=== PATIENT | female | born 2000 | race African-American/Black ===

== ENCOUNTER 2020-01-05 11:12 | Emergency (ER) | payer OTHER ==
[~2020-01-05] VITALS: Ht 167.6 cm; Wt 130.0 kg
[2020-01-05 11:50] LABS: BILIRUBIN,URINE NEGATIVE (NEG); CLARITY,URINE CLEAR; COLOR,URINE YELLOW; NITRITE,URINE NEGATIVE (NEG); PH,URINE 5.5 (<5.0-8.0); PROTEIN,URINE NEGATIVE (NEG-TRACE); UROBILINOGEN,URINE 0.2 mg/dL (0.2 mg/dL)
[2020-01-05 11:51] LABS: BASO % 1 % (0-3); EOS # 0.1 x10^3/uL (0.0-0.7); EOS % 1 % (0-3); HEMATOCRIT 35.6 % (36.0-47.0); HEMOGLOBIN 11.3 g/dL (12.0-15.5); LYMPH # 2.4 x10^3/uL (1.0-4.8); LYMPH % 36 % (24-48); MEAN CORPUSCULAR HEMOGLOBIN 23 pg (25-35); MEAN CORPUSCULAR HGB CONC 32 g/dL (31-37); MEAN CORPUSCULAR VOLUME 72 fL (79-100); MONO # 0.5 x10^3/uL (0.0-1.1); MONO % 8 % (0-9); NEUT # 3.7 x10^3/uL (1.8-7.7); NEUT % 55 % (31-73); PLATELET COUNT 270 x10^3/uL (140-400); RED BLOOD COUNT 4.94 x10^6/uL (3.50-5.40); RED CELL DISTRIBUTION WIDTH 16.2 % (11.5-14.5); WHITE BLOOD COUNT 6.8 x10^3/uL (4.0-11.0)
[2020-01-05 11:56] LABS: BACTERIA,URINE FEW /HPF (0-FEW); RBC,URINE OCC /HPF (0-2); SQUAMOUS EPITHELIAL CELL,UR MOD /LPF; WBC,URINE OCC /HPF (0-4)
--- NOTE | 2020-01-05 12:01 | PHYS DOC ---
Past Medical History Past Medical History: No Pertinent History Past Surgical History: No Surgical History Smoking Status: Never Smoker Alcohol Use: Occasionally Drug Use: None General Adult EDM: Chief Complaint: ABDOMINAL PAIN HPI: HPI: Patient is a 19-year-old female who presents to ER today for evaluation of right lower abdominal pain that been going on for 3 days. Patient also complained of frequent urination with pain. Patient denies any vaginal bleeding or discharge. Patient denies any fever. Review of Systems: Review of Systems: Constitutional: Denies fever or chills. [] Eyes: Denies change in visual acuity. [] HENT: Denies nasal congestion or sore throat. [] Respiratory: Denies cough or shortness of breath. [] Cardiovascular: Denies chest pain or edema. [] GI: Positive for abdominal pain, nausea, no diarrhea, : Denies dysuria. [] Musculoskeletal: Denies back pain or joint pain. [] Integument: Denies rash. [] Neurologic: Denies headache, focal weakness or sensory changes. [] Endocrine: Denies polyuria or polydipsia. [] Lymphatic: Denies swollen glands. [] Psychiatric: Denies depression or anxiety. [] Heart Score: Risk Factors: Risk Factors: DM, Current or recent (<one month) smoker, HTN, HLP, family h istory of CAD, obesity. Risk Scores: Score 0 - 3: 2.5% MACE over next 6 weeks - Discharge Home Score 4 - 6: 20.3% MACE over next 6 weeks - Admit for Clinical Observation Score 7 - 10: 72.7% MACE over next 6 weeks - Early Invasive Strategies Allergies: Allergies: Allergies Coded Allergies Type Severity Reaction Last Updated Verified No Known Drug Allergies 08/22/13 No Physical Exam: PE: Constitutional: Well developed, well nourished, no acute distress, non-toxic appearance. [] HENT: Normocephalic, atraumatic, bilateral external ears normal, oropharynx moist, no oral exudates, nose normal. [] Eyes: PERRLA, EOMI, conjunctiva normal, no discharge. [] Neck: Normal range of motion, no tenderness, supple, no stridor. [] Cardiovascular:Heart rate regular rhythm, no murmur [] Lungs & Thorax: Bilateral breath sounds clear to auscultation [] Abdomen: Bowel sounds normal, soft, there is tenderness to palpation to right l ower abdominal area and suprapubic area, no masses, no pulsatile masses. [] Skin: Warm, dry, no erythema, no rash. [] Back: No tenderness, no CVA tenderness. [] Extremities: No tenderness, no cyanosis, no clubbing, ROM intact, no edema. [] Neurologic: Alert and oriented X 3, normal motor function, normal sensory function, no focal deficits noted. [] Psychologic: Affect normal, judgement normal, mood normal. [] Current Patient Data: Labs: Laboratory Tests Test 01/05/20 11:16 01/05/20 11:25 White Blood Count 6.8 x10^3/uL (4.0-11.0) Red Blood Count 4.94 x10^6/uL (3.50-5.40) Hemoglobin 11.3 g/dL (12.0-15.5) L Hematocrit 35.6 % (36.0-47.0) L Mean Corpuscular Volume 72 fL (79-100) L Mean Corpuscular Hemoglobin 23 pg (25-35) L Mean Corpuscular Hemoglobin Concent 32 g/dL (31-37) Red Cell Distribution Width 16.2 % (11.5-14.5) H Platelet Count 270 x10^3/uL (140-400) Neutrophils (%) (Auto) 55 % (31-73) Lymphocytes (%) (Auto) 36 % (24-48) Monocytes (%) (Auto) 8 % (0-9) Eosinophils (%) (Auto) 1 % (0-3) Basophils (%) (Auto) 1 % (0-3) Neutrophils # (Auto) 3.7 x10^3/uL (1.8-7.7) Lymphocytes # (Auto) 2.4 x10^3/uL (1.0-4.8) Monocytes # (Auto) 0.5 x10^3/uL (0.0-1.1) Eosinophils # (Auto) 0.1 x10^3/uL (0.0-0.7) Basophils # (Auto) 0.0 x10^3/uL (0.0-0.2) Platelet Estimate Pending Urine Collection Type Unknown Urine Color Yellow Urine Clarity Clear Urine pH 5.5 (<5.0-8.0) Urine Specific Herman 1.025 (1.000-1.030) Urine Protein Negative mg/dL (NEG-TRACE) Urine Glucose (UA) Negative mg/dL (NEG) Urine Ketones (Stick) Negative mg/dL (NEG) Urine Blood Negative (NEG) Urine Nitrite Negative (NEG) Urine Bilirubin Negative (NEG) Urine Urobilinogen Dipstick 0.2 mg/dL (0.2 mg/dL) Urine Leukocyte Esterase Negative (NEG) Urine RBC Occ /HPF (0-2) Urine WBC Occ /HPF (0-4) Urine Squamous Epithelial Cells Mod /LPF Urine Bacteria Few /HPF (0-FEW) Urine Mucus Marked /LPF POC Urine HCG, Qualitative Hcg negative (Negative) Laboratory Tests 01/05/20 11:16 Vital Signs: Vital Signs Date Time Temp Pulse Resp B/P (MAP) Pulse Ox O2 Delivery O2 Flow Rate FiO2 01/05/20 11:20 98.9 88 16 147/65 (92) 97 Room Air 98.9 EKG: EKG: [] Radiology/Procedures: Radiology/Procedures: [][facility] [address] [place] [address] IMAGING REPORT Signed PATIENT: HAYDEN NAGEL BACCOUNT: [id number] : 2000 LOCATION: ER AGE: 19 SEX: F EXAM STATUS: REG ER ORD. PHYSICIAN: CRISTELA CERON DO REASON: RLQ PELVIC PAIN PROCEDURE: PELVIS ULTRASOUND EXAM: Pelvic Ultrasound Complete INDICATION: Right lower quadrant pelvic pain ? TECHNIQUE: Real-time ultrasound of the pelvis with permanent freeze-frame documentation. COMPARISON:?None. ? FINDINGS: ? UTERUS:?Uterus 7.6 x 4.4 x 3.0 cm.? Endometrial thickness 1.1 cm. No uterine or endometrial abnormality. ? RIGHT OVARY/ADNEXA: Right ovary 5.4 x 4.2 x 3.9 cm.? Unremarkable. Normal ovarian blood flow. Technologist reports no tenderness to the ovaries during the exam. LEFT OVARY/ADNEXA:?Left ovary 3.3 x 2.9 x 2.0 cm. ?Unremarkable. Normal ovarian blood flow. ? OTHER:?Small amount of free fluid of the right adnexa. ? IMPRESSION: ? Normal pelvic ultrasound with small amount of likely physiologic pelvic free fluid. Electronically signed by: Henrietta Milton MD (01/05/2020 2:36 PM) [id number] DICTATED and SIGNED BY: HENRIETTA MILTON MD DATE: 01/05/20 1436 [facility] [address] [place] [address] IMAGING REPORT Signed PATIENT: HAYDEN NAGEL BACCOUNT: [id number] : 2000 LOCATION: ER AGE: 19 SEX: F EXAM STATUS: REG ER ORD. PHYSICIAN: CRISTELA CERON DO REASON: right side abdominal pain X 3 DAYS PROCEDURE: CT ABD PELV W/ IV CONTRST ONLY EXAM: CT Abdomen and Pelvis with IV contrast INDICATION: Right-sided abdominal pain for 3 days. TECHNIQUE: Multi-detector row CT images were acquired from the lung bases through the abdomen and pelvis with the use of IV contrast. Sagittal and coronal images were acquired from the transaxial data. All CT scans performed at this facility utilize dose optimization techniques as appropriate to the exam, including the following: Automated exposure control and adjustment of the mA and/or KV according to patient size (this includes techniques or standardized protocols for targeted exams where dose is indication/reason for exam). IV CONTRAST: Administered ORAL CONTRAST: Not administered COMPARISON: CT abdomen and pelvis with IV contrast 10/27/2015 FINDINGS: LOWER CHEST: Unremarkable LIVER: Unremarkable BILIARY SYSTEM: Gallbladder is unremarkable. Bile ducts are not dilated. PANCREAS: Unremarkable SPLEEN: Unremarkable ADRENALS: Unremarkable KIDNEYS & URETERS: Unremarkable BLADDER: Unremarkable REPRODUCTIVE ORGANS: Interval development of a right adnexal cystic structure measuring 4.4 cm. The uterus and left ovary are unremarkable. GASTROINTESTINAL: The stomach and proximal small bowel are unremarkable. The colon shows a few scattered colonic diverticuli. In the right lower quadrant abdomen near the right adnexa, there is some mesenteric soft tissue stranding that is new, adjacent to the collapsed cluster of small bowel loops adjacent to the sigmoid colon. Lack of enteric contrast limits detailed evaluation in this area. The appendix is normal. MESENTERY/PERITONEUM/RETROPERITONEUM: Unremarkable VASCULAR: Unremarkable LYMPH NODES: No adenopathy OSSEOUS & SOFT TISSUES: Unremarkable IMPRESSION: Patient has acute inflammatory changes in the right lower quadrant abdomen/pelvis that is associated with an enlarged right adnexal structure. Differential considerations include acute enteritis/diverticulitis an incidental right ovarian cyst versus inflammatory changes secondary to ovarian torsion. Consider correlation with the clinical exam and pelvic ultrasound if clinically warranted. There is no evidence of acute appendicitis. No abscess or free air. Electronically signed by: Henrietta Milton MD (01/05/2020 1:15 PM) [id number] DICTATED and SIGNED BY: HENRIETTA MILTON MD DATE: 01/05/20 5378 Course & Med Decision Making: Course & Med Decision Making Pertinent Labs and Imaging studies reviewed. (See chart for details) [] Dragon Disclaimer: Dragon Disclaimer: This electronic medical record was generated, in whole or in part, using a voice recognition dictation system. Departure Departure Impression: Primary Impression: Abdominal pain Disposition: HOME, SELF-CARE Condition: STABLE Referrals: UNKNOWN PCP NAME (PCP) please follow up with your doctor in a few days for reevaluation Patient Instructions: Abdominal Pain Additional Instructions: Thank you for visiting our Emergency Department. We appreciate you trusting us with your care. If any additional problems come up don't hesitate to return to visit us. Please follow up with your primary care provider so they can plan additional care if needed and know about the problem that you had. If symptoms worsen come back to the Emergency Department. Any concerning symptoms that start such as chest pain, shortness of air, weakness or numbness on one side of the body, running high fevers or any other concerning symptoms return to the ER. CRISTELA CERON DO January 05, 2020 12:01
[2020-01-05 12:03] LABS: CALCIUM 8.8 mg/dL (8.5-10.1); CREATININE 0.7 mg/dL (0.6-1.0); GFR 129.1; POTASSIUM 4.2 mmol/L (3.5-5.1)
[2020-01-05 12:10] LABS: ALBUMIN 3.4 g/dL (3.4-5.0); ALBUMIN/GLOBULIN RATIO 0.9 (1.0-1.7); TOTAL BILIRUBIN 0.2 mg/dL (0.2-1.0); TOTAL PROTEIN 7.4 g/dL (6.4-8.2)
[2020-01-05 12:27] LABS: ANISOCYTOSIS SLIGHT; HYPOCHROMIA SLIGHT; MICROCYTOSIS SLIGHT; PLT ESTIMATE ADEQUATE (ADEQUATE); POIKILOCYTOSIS SLIGHT
[2020-01-05 12:28] LABS: OVALOCYTES FEW
[2020-01-05] MEDS ORDERED: IOHEXOL 300 MG/ML 100ML VIAL. IV ONE (13:00)
--- NOTE | 2020-01-05 13:18 | RAD ---
EXAM: CT Abdomen and Pelvis with IV contrast INDICATION: Right-sided abdominal pain for 3 days. TECHNIQUE: Multi-detector row CT images were acquired from the lung bases through the abdomen and pelvis with the use of IV contrast. Sagittal and coronal images were acquired from the transaxial data. All CT scans performed at this facility utilize dose optimization techniques as appropriate to the exam, including the following: Automated exposure control and adjustment of the mA and/or KV according to patient size (this includes techniques or standardized protocols for targeted exams where dose is indication/reason for exam). IV CONTRAST: Administered ORAL CONTRAST: Not administered COMPARISON: CT abdomen and pelvis with IV contrast 10/27/2015 FINDINGS: LOWER CHEST: Unremarkable LIVER: Unremarkable BILIARY SYSTEM: Gallbladder is unremarkable. Bile ducts are not dilated. PANCREAS: Unremarkable SPLEEN: Unremarkable ADRENALS: Unremarkable KIDNEYS & URETERS: Unremarkable BLADDER: Unremarkable REPRODUCTIVE ORGANS: Interval development of a right adnexal cystic structure measuring 4.4 cm. The uterus and left ovary are unremarkable. GASTROINTESTINAL: The stomach and proximal small bowel are unremarkable. The colon shows a few scattered colonic diverticuli. In the right lower quadrant abdomen near the right adnexa, there is some mesenteric soft tissue stranding that is new, adjacent to the collapsed cluster of small bowel loops adjacent to the sigmoid colon. Lack of enteric contrast limits detailed evaluation in this area. The appendix is normal. MESENTERY/PERITONEUM/RETROPERITONEUM: Unremarkable VASCULAR: Unremarkable LYMPH NODES: No adenopathy OSSEOUS & SOFT TISSUES: Unremarkable IMPRESSION: Patient has acute inflammatory changes in the right lower quadrant abdomen/pelvis that is associated with an enlarged right adnexal structure. Differential considerations include acute enteritis/diverticulitis an incidental right ovarian cyst versus inflammatory changes secondary to ovarian torsion. Consider correlation with the clinical exam and pelvic ultrasound if clinically warranted. There is no evidence of acute appendicitis. No abscess or free air. Electronically signed by: Apolinar Milton MD (01/05/2020 1:15 PM) [id number]
[2020-01-05 14:16] VITALS: BP 137/60
--- NOTE | 2020-01-05 14:38 | RAD ---
EXAM: Pelvic Ultrasound Complete INDICATION: Right lower quadrant pelvic pain ? TECHNIQUE: Real-time ultrasound of the pelvis with permanent freeze-frame documentation. COMPARISON:?None. ? FINDINGS: ? UTERUS:?Uterus 7.6 x 4.4 x 3.0 cm.? Endometrial thickness 1.1 cm. No uterine or endometrial abnormality. ? RIGHT OVARY/ADNEXA: Right ovary 5.4 x 4.2 x 3.9 cm.? Unremarkable. Normal ovarian blood flow. Technologist reports no tenderness to the ovaries during the exam. LEFT OVARY/ADNEXA:?Left ovary 3.3 x 2.9 x 2.0 cm. ?Unremarkable. Normal ovarian blood flow. ? OTHER:?Small amount of free fluid of the right adnexa. ? IMPRESSION: ? Normal pelvic ultrasound with small amount of likely physiologic pelvic free fluid. Electronically signed by: Apolinar Milton MD (01/05/2020 2:36 PM) [id number]
== END 2020-01-05 15:59 | disposition home or self-care (01) ==
LOC: ER 11:12
DX: R10.31 Right lower quadrant pain (principal); R35.0 Frequency of micturition; R11.0 Nausea
CPT/HCPCS: 36415; 74177; 76856; 80053; 81001; 81025; 83690; 85025; 99285; Q9967